=== PATIENT | female | born 1945 | race Caucasian/White ===

== ENCOUNTER 2019-05-12 14:14 | Outpatient (CLI) | payer MEDICARE ==
--- NOTE | 2019-05-12 14:29 | RAD ---
Exam:3 views left foot HISTORY: Pain. Possible glass in foot. Evaluate for foreign body COMPARISON: None FINDINGS: Lisfranc alignment is maintained. Preserved joint spaces. No fracture, cortical irregularit y or periosteal reaction. No radiopaque foreign body. IMPRESSION: No radiopaque foreign body
== END 2019-05-12 14:15 | disposition home or self-care (01) ==
LOC: BICRAD 14:14
PROVIDERS: ATTEND Podiatrist
DX: M79.672 Pain in left foot (principal); M79.5 Residual foreign body in soft tissue

== ENCOUNTER 2021-11-22 12:32 | Outpatient (CLI) | payer MEDICARE, MEDICAID | END 2021-11-22 12:33 | disposition home or self-care (01) | LOC: BICMAMMO 12:32 | PROVIDERS: ATTEND Family Medicine | DX: R92.8 Other abnormal and inconclusive findings on diagnostic imaging of breast (principal) | CPT/HCPCS: 76642; 77065; G0279 ==

== ENCOUNTER 2022-06-21 14:02 | Outpatient (CLI) | payer MEDICARE, MEDICAID | END 2022-06-21 14:03 | disposition home or self-care (01) | LOC: BICMAMMO 14:02 | PROVIDERS: ATTEND Family Medicine | DX: R92.8 Other abnormal and inconclusive findings on diagnostic imaging of breast (principal); R92.1 Mammographic calcification found on diagnostic imaging of breast | CPT/HCPCS: G0279 ==